=== PATIENT | female | born 1985 | race Caucasian/White ===

== ENCOUNTER 2017-07-08 23:15 | Emergency (ER) | payer MEDICAID ==
[~2017-07-08] VITALS: Ht 175.3 cm; Wt 55.0 kg
[~2017-07-08 23:15] MED LIST: ANTI10DR6 EACH EAR; CIPR7.5D2 EACH EAR; CLIN-26 PO; GUAI600T45 PO; NEOM10DR22 OT; NEOM10DR45 EACH EAR; PREN-139 PO; TRAM50TA2 PO
[2017-07-09 00:32] VITALS: BP 118/73
[2017-07-09] MEDS ORDERED: NEOM10SO7 OT (01:25)
== END 2017-07-09 01:37 | disposition home or self-care (01) ==
LOC: ER 23:16
DX: H92.13 Otorrhea, bilateral (principal); F12.10 Cannabis abuse, uncomplicated; Z79.899 Other long term (current) drug therapy; Z88.0 Allergy status to penicillin
CPT/HCPCS: 99283

== ENCOUNTER 2017-12-26 00:08 | Emergency (ER) | payer MEDICAID ==
[~2017-12-26] VITALS: Ht 175.3 cm; Wt 62.0 kg
[~2017-12-26 00:08] MED LIST changes: +NEOM10SO7 OT
[2017-12-26] MEDS ORDERED: HYDROcodone/acetaminophen 10/325mg tab PO ONE (00:40)
[2017-12-26] MEDS ORDERED: clindamycin 150mg capsule PO ONE (00:40)
[2017-12-26] MEDS ORDERED: HYDR-4383 PO (00:42)
[2017-12-26] MEDS ORDERED: CLIN300C54 PO (00:42)
[2017-12-26] MEDS ORDERED: IBUP-1986 PO (00:42)
[2017-12-26 01:08] VITALS: BP 117/75
== END 2017-12-26 01:13 | disposition home or self-care (01) ==
LOC: ER 00:09
DX: K04.7 Periapical abscess without sinus (principal); K02.9 Dental caries, unspecified; K08.3 Retained dental root; F12.90 Cannabis use, unspecified, uncomplicated; F17.200 Nicotine dependence, unspecified, uncomplicated; Z88.0 Allergy status to penicillin; Z88.1 Allergy status to other antibiotic agents; Z98.890 Other specified postprocedural states
CPT/HCPCS: 99283

== ENCOUNTER 2018-02-02 03:10 | Emergency (ER) | payer MEDICAID ==
[~2018-02-02] VITALS: Ht 175.3 cm; Wt 68.1 kg
[~2018-02-02 03:10] MED LIST changes: +HYDR-4383 PO; +IBUP-1986 PO
[2018-02-02] MEDS ORDERED: TRAM50TA2 PO (03:28)
[2018-02-02] MEDS ORDERED: CLIN300C3 PO (03:28)
[2018-02-02] MEDS ORDERED: traMADol 50MG tablet PO ONE (03:30)
[2018-02-02 03:36] VITALS: BP 124/83
== END 2018-02-02 03:38 | disposition home or self-care (01) ==
LOC: ER 03:10
DX: K02.9 Dental caries, unspecified (principal); F12.90 Cannabis use, unspecified, uncomplicated; Z98.890 Other specified postprocedural states; Z88.0 Allergy status to penicillin; Z88.1 Allergy status to other antibiotic agents; Z79.899 Other long term (current) drug therapy
CPT/HCPCS: 99283

== ENCOUNTER 2018-09-04 02:54 | Emergency (ER) | payer MEDICAID ==
[~2018-09-04] VITALS: Ht 175.3 cm; Wt 68.0 kg
[~2018-09-04 02:54] MED LIST changes: -PREN-139 PO; +PRENATAL ONE T1 EACH PO
[2018-09-04 02:58] VITALS: BP 120/82
== END 2018-09-04 03:36 | disposition left against medical advice (07) ==
LOC: ER 02:55
DX: H92.01 Otalgia, right ear (principal); Z53.21 Procedure and treatment not carried out due to patient leaving prior to being seen by health care provider

== ENCOUNTER 2018-12-04 20:40 | Emergency (ER) | payer MEDICAID ==
[~2018-12-04] VITALS: Ht 175.3 cm; Wt 66.3 kg
[2018-12-04] MEDS ORDERED: CLIN150C8 PO (22:55)
--- NOTE | 2018-12-04 23:00 | NUR ---
PATIENT C/O OF RIGHT EAR PAIN AND RIGHT HEAD PAIN. SOME REDNESS IN EAR . CHRONIC EAR ISSUE
[2018-12-05 01:15] VITALS: BP 109/62
== END 2018-12-04 23:40 | disposition home or self-care (01) ==
LOC: ER 20:42
DX: H66.91 Otitis media, unspecified, right ear (principal); H92.11 Otorrhea, right ear; F12.90 Cannabis use, unspecified, uncomplicated; Z98.890 Other specified postprocedural states; Z88.0 Allergy status to penicillin; Z79.2 Long term (current) use of antibiotics; Z79.899 Other long term (current) drug therapy
CPT/HCPCS: 99283

== ENCOUNTER 2019-01-29 15:50 | Emergency (ER) | payer MEDICAID ==
[~2019-01-29] VITALS: Ht 175.3 cm; Wt 68.0 kg
[~2019-01-29 15:50] MED LIST changes: +CLIN150C8 PO
[2019-01-29 16:02] VITALS: BP 114/55
[2019-01-29] MEDS ORDERED: DOXY100C43 PO (16:38)
== END 2019-01-29 17:15 | disposition home or self-care (01) ==
LOC: ER 15:51
DX: L02.416 Cutaneous abscess of left lower limb (principal); F12.90 Cannabis use, unspecified, uncomplicated; Z88.0 Allergy status to penicillin; Z88.1 Allergy status to other antibiotic agents; Z79.899 Other long term (current) drug therapy; Z98.890 Other specified postprocedural states
CPT/HCPCS: 99283

== ENCOUNTER 2019-03-10 17:23 | Emergency (ER) | payer MEDICAID ==
[~2019-03-10] VITALS: Ht 175.3 cm; Wt 80.0 kg
[2019-03-10 17:31] VITALS: BP 128/89
== END 2019-03-10 18:20 | disposition home or self-care (01) ==
LOC: ER 17:25
DX: R05 Cough (principal); R11.2 Nausea with vomiting, unspecified; R51 Headache; J02.9 Acute pharyngitis, unspecified; F10.99 Alcohol use, unspecified with unspecified alcohol-induced disorder; F12.90 Cannabis use, unspecified, uncomplicated; Z86.2 Personal history of diseases of the blood and blood-forming organs and certain disorders involving the immune mechanism; Z98.890 Other specified postprocedural states; Z88.0 Allergy status to penicillin; Z88.1 Allergy status to other antibiotic agents; Z79.899 Other long term (current) drug therapy; Y90.9 Presence of alcohol in blood, level not specified
CPT/HCPCS: 99281

== ENCOUNTER 2019-06-16 05:22 | Emergency (ER) | payer MEDICAID ==
[~2019-06-16] VITALS: Ht 175.3 cm; Wt 65.6 kg
[2019-06-16 05:29] VITALS: BP 107/66
== END 2019-06-16 05:53 | disposition left against medical advice (07) ==
LOC: ER 05:22
DX: H92.01 Otalgia, right ear (principal); Z53.21 Procedure and treatment not carried out due to patient leaving prior to being seen by health care provider

== ENCOUNTER 2020-06-29 23:28 | Emergency (ER) | payer MEDICAID ==
[~2020-06-29] VITALS: Ht 175.3 cm; Wt 68.4 kg
[2020-06-29 23:35] VITALS: BP 106/67
[2020-06-30] MEDS ORDERED: acetaminophen 325mg tablet PO ONE (00:10)
== END 2020-06-30 00:46 | disposition home or self-care (01) ==
LOC: ER 23:28
DX: R07.89 Other chest pain (principal); F12.90 Cannabis use, unspecified, uncomplicated; Z86.2 Personal history of diseases of the blood and blood-forming organs and certain disorders involving the immune mechanism; Z98.890 Other specified postprocedural states; Z72.89 Other problems related to lifestyle; Z88.0 Allergy status to penicillin; Z79.899 Other long term (current) drug therapy
CPT/HCPCS: 93005; 99283

== ENCOUNTER 2020-11-08 18:33 | Emergency (ER) | payer MEDICAID ==
[~2020-11-08] VITALS: Ht 175.3 cm; Wt 63.6 kg
[2020-11-08 20:37] VITALS: BP 101/68
[2020-11-08] MEDS ORDERED: LIDOcaine 1% 30ml preserv. free vial IJ ONE (22:05)
[2020-11-08] MEDS ORDERED: HYDR-3965 PO (22:57)
== END 2020-11-08 23:36 | disposition home or self-care (01) ==
LOC: ER 18:34
DX: S62.614A Displaced fracture of proximal phalanx of right ring finger, initial encounter for closed fracture (principal); F12.90 Cannabis use, unspecified, uncomplicated; Z86.2 Personal history of diseases of the blood and blood-forming organs and certain disorders involving the immune mechanism; Z98.890 Other specified postprocedural states; Z72.89 Other problems related to lifestyle; Z88.0 Allergy status to penicillin; Z79.2 Long term (current) use of antibiotics; Z79.899 Other long term (current) drug therapy; X58.XXXA Exposure to other specified factors, initial encounter; Y93.89 Activity, other specified; Y92.89 Other specified places as the place of occurrence of the external cause; Y99.8 Other external cause status
CPT/HCPCS: 26725; 26755; 73120; 73140; 99284

== ENCOUNTER 2022-05-24 16:39 | Emergency (ER) | payer MEDICAID ==
[~2022-05-24] VITALS: Ht 172.7 cm; Wt 68.2 kg
[2022-05-24 17:25] VITALS: BP 106/62
[2022-05-24] MEDS ORDERED: TETanus/Pertussis (Acell)/Diphther VAC/PF (Tdap-Adult) 0.5ml syringe IMVAC ONE (21:05)
[2022-05-24] MEDS ORDERED: HYDROcodone/acetaminophen 10/325mg tab PO ONE (21:05)
[2022-05-24] MEDS ORDERED: LIDOcaine 1% 30ml preserv. free vial IJ ONE (21:05)
[2022-05-24] MEDS ORDERED: ketorolac trometh inj. 60 MG/2 ML VIAL IM ONE (21:05)
[2022-05-24] MEDS ORDERED: HYDR-3965 PO (21:39)
[2022-05-24] MEDS ORDERED: IBUP-1986 PO (21:39)
== END 2022-05-24 22:14 | disposition home or self-care (01) ==
LOC: ER 16:40
DX: S62.346A Nondisplaced fracture of base of fifth metacarpal bone, right hand, initial encounter for closed fracture (principal); S80.12XA Contusion of left lower leg, initial encounter; S90.02XA Contusion of left ankle, initial encounter; S50.812A Abrasion of left forearm, initial encounter; S60.221A Contusion of right hand, initial encounter; F12.90 Cannabis use, unspecified, uncomplicated; Z72.89 Other problems related to lifestyle; Z79.2 Long term (current) use of antibiotics; Z98.891 History of uterine scar from previous surgery; Z79.899 Other long term (current) drug therapy; Z23 Encounter for immunization; Z88.0 Allergy status to penicillin; Z88.1 Allergy status to other antibiotic agents; V29.99XA Rider (driver) (passenger) of other motorcycle injured in unspecified traffic accident, initial encounter; Y93.89 Activity, other specified; Y92.89 Other specified places as the place of occurrence of the external cause; Y99.8 Other external cause status
CPT/HCPCS: 26605; 29540; 73130; 73140; 73564; 73590; 73610; 90471; 90715; 96372; 99284; A6222; J1885; L1930; 28470; 29260; 90461; A6449

== ENCOUNTER 2022-05-29 17:05 | Emergency (ER) | payer MEDICAID ==
[~2022-05-29] VITALS: Ht 172.7 cm; Wt 67.0 kg
[~2022-05-29 17:05] MED LIST changes: +HYDR-3965 PO
[2022-05-29 17:07] VITALS: BP 110/59
[2022-05-29] MEDS ORDERED: neomy sulf/polymyx B sulf/HC 10ml otic suspension EACH EAR ONE (17:40)
== END 2022-05-29 18:15 | disposition home or self-care (01) ==
LOC: ER 17:06
DX: H60.592 Other noninfective acute otitis externa, left ear (principal); F12.10 Cannabis abuse, uncomplicated; Z86.2 Personal history of diseases of the blood and blood-forming organs and certain disorders involving the immune mechanism; Z88.0 Allergy status to penicillin; Z88.1 Allergy status to other antibiotic agents; Z79.899 Other long term (current) drug therapy; Z79.1 Long term (current) use of non-steroidal anti-inflammatories (NSAID); Z79.2 Long term (current) use of antibiotics
CPT/HCPCS: 99284

== ENCOUNTER 2023-08-08 22:04 | Emergency (ER) | payer MEDICAID ==
[~2023-08-08] VITALS: Ht 175.3 cm; Wt 63.6 kg
[~2023-08-08 22:04] MED LIST changes: +CLIN-214 PO; -CLIN150C8 PO; -HYDR-3965 PO
[2023-08-08 22:09] VITALS: BP 114/49; PULSE 104; RESP 16; TEMP 99.1; O2SAT 98
== END 2023-08-08 23:32 | disposition left against medical advice (07) ==
LOC: ER 22:07
DX: O26.899 Other specified pregnancy related conditions, unspecified trimester (principal); N93.9 Abnormal uterine and vaginal bleeding, unspecified; Z88.1 Allergy status to other antibiotic agents; Z88.0 Allergy status to penicillin

== ENCOUNTER 2023-09-20 20:29 | Emergency (ER) | payer MEDICAID ==
[~2023-09-20] VITALS: Ht 175.3 cm; Wt 64.1 kg
[2023-09-20 20:36] VITALS: BP 115/59; RESP 14; TEMP 98.4; O2SAT 100
[2023-09-20 21:27] LABS: BASOPHILS % (AUTO) 0.4 % (0-1); EOSINOPHILS # (AUTO) 0.1 X10'3 (0-0.9); EOSINOPHILS % (AUTO) 0.8 % (0-6); HEMATOCRIT 35.2 % (35.0-45.0); HEMOGLOBIN 11.9 g/dl (12.0-16.0); LYMPHOCYTES # (AUTO) 1.7 X10'3 (1.1-4.8); LYMPHOCYTES % (AUTO) 13.6 % (21-51); MEAN CORPUSCULAR HEMOGLOBIN 30.9 PG (27.0-31.0); MEAN CORPUSCULAR HGB CONC 33.7 g/dL (33.0-36.5); MEAN CORPUSCULAR VOLUME 91.7 FL (78-98); MONOCYTES # (AUTO) 0.7 X10'3 (0-0.9); MONOCYTES % (AUTO) 5.8 % (2-12); NEUTROPHILS # (AUTO) 9.9 X10'3 (1.8-7.7); NEUTROPHILS % (AUTO) 79.4 % (42-75); PLATELET COUNT 254 X10'3 (140-440); RED BLOOD COUNT 3.84 X10'6 (4.20-5.60); RED CELL DISTRIBUTION WIDTH 13.5 % (11.5-14.5); WHITE BLOOD COUNT 12.5 X10'3 (4.5-11.0)
[2023-09-20 21:36] LABS: HCG SERUM QL POSITIVE
[2023-09-20 21:39] LABS: APTT 27 SECONDS (22-32); INR 0.9 INR; PROTHROMBIN TIME 10.2 SECONDS (9.0-12.0)
[2023-09-20 21:40] LABS: ALANINE AMINOTRANSFERASE 23 U/L (12-78); ALBUMIN 2.9 G/DL (3.4-5.0); ALBUMIN/GLOBULIN RATIO 0.8 (1.1-1.5); ALKALINE PHOSPHATASE 92 IU/L (46-116); ANION GAP 8 (8-16); ASPARTATE AMINO TRANSFERASE 17 U/L (10-37); BILIRUBIN,TOTAL 0.4 MG/DL (0.1-1.0); BLOOD UREA NITROGEN 8 MG/DL (7-18); BUN/CREATININE RATIO 15.1 (10.0-20.0); CALCIUM 8.7 MG/DL (8.5-10.1); CHLORIDE 103 MMOL/L (99-107); CREATININE 0.53 MG/DL (0.40-0.90); GLUCOSE 100 MG/DL (70-104); POTASSIUM 3.3 MMOL/L (3.5-5.1); SODIUM 137 MMOL/L (135-145); TOTAL CARBON DIOXIDE 26.4 MMOL/L (24-32); TOTAL PROTEIN 6.7 G/DL (6.4-8.2); eCRCL 147 ML/MIN; eGFR > 90 ML/MIN
[2023-09-20 22:04] LABS: BETA HCG,QUANTITATIVE 23355 mIU/ml
[2023-09-20] MEDS: acetaminophen 325mg tablet PO ONE (22:42)
== END 2023-09-20 23:18 | disposition home or self-care (01) ==
LOC: ER 20:29
DX: O03.4 Incomplete spontaneous abortion without complication (principal); F12.90 Cannabis use, unspecified, uncomplicated; Z88.0 Allergy status to penicillin; Z88.1 Allergy status to other antibiotic agents; Z79.899 Other long term (current) drug therapy; Z79.2 Long term (current) use of antibiotics; Z98.890 Other specified postprocedural states
CPT/HCPCS: 36415; 76801; 80053; 84702; 84703; 85025; 85610; 85730; 86900; 86901; 99284

== ENCOUNTER 2023-09-25 14:35 | Emergency (ER) | payer MEDICAID ==
[~2023-09-25] VITALS: Ht 175.3 cm; Wt 65.0 kg
[2023-09-25 14:41] VITALS: TEMP 98.6
[2023-09-25 15:28] VITALS: BP 113/68; PULSE 92; RESP 14; O2SAT 97
== END 2023-09-25 16:36 | disposition home or self-care (01) ==
LOC: ER 14:36
DX: O03.4 Incomplete spontaneous abortion without complication (principal); F12.90 Cannabis use, unspecified, uncomplicated; Z88.0 Allergy status to penicillin; Z88.1 Allergy status to other antibiotic agents; Z79.899 Other long term (current) drug therapy; Z79.1 Long term (current) use of non-steroidal anti-inflammatories (NSAID); Z79.2 Long term (current) use of antibiotics; Z98.890 Other specified postprocedural states
CPT/HCPCS: 99281

== ENCOUNTER 2024-09-09 21:15 | Emergency (ER) | payer MEDICAID ==
[~2024-09-09] VITALS: Ht 175.3 cm; Wt 65.2 kg
[2024-09-09 21:24] VITALS: BP 120/76; PULSE 98; RESP 18; TEMP 99.1; O2SAT 99
--- NOTE | 2024-09-09 21:37 | Physician Documentation ---
History of Present Illness ~ Chief Complaint: Laceration Stated Complaint: ARM LAC Time Seen by MD: 21:35 OK to notify your PCP?: Yes Primary Medical Doctor: [facility] Source: patient HPI 38-year-old female presents for laceration to right elbow that happened around 9:00 a.m. this morning. She placed butterfly bandages on it at the time and irrigated wound well prior to putting a dressing. She took an nap this evening and then noticed little bit of drainage on the gauze and just wanted to be evaluated. Use last tetanus vaccine was last year. Tetanus Within 5 Years: Yes Medication Reconciliation Allergies: Coded Allergies: Penicillins (Verified Allergy, Unknown, unk, pt told of this allergy when she was younger, 08/08/23) amoxicillin (Verified Allergy, Unknown, 08/08/23) Scheduled Antipyrine/Benzocaine (Antipyrine-Benzocaine Ear Drop), 2-4 DROP EACH EAR Q2H PRN Ciprofloxacin HCl/Dexameth (Ciprodex Otic Suspension), 4 DROP EACH EAR BID Clindamycin HCl (Clindamycin HCl), 450 CAP PO TID Clindamycin HCl (Clindamycin HCl CAPSULE), 1 CAP PO QID Guaifenesin (Mucinex), 1 TAB PO Q12H Ibuprofen (Ibuprofen), 1 TAB PO Q8H Ibuprofen (Ibuprofen), 1 TAB PO Q8H Neomy Sulf/Polymyx B Sulf/Hc (Cortisporin Ear Suspension), 2 DROP OT 5XD Neomy Sulf/Polymyx B Sulf/Hc (Cortisporin Otic Solution), 2 DROP OT TID Neomycin/Polymyxin B Sulf/Hc (Qfrzjmue-Eyhztazhl-Vy Ear Susp), 4 DROP EACH EAR TID Vit #108/Iron/Fa ( One Tablet), 1 EACH PO DAILY, (Reported) Tramadol Hcl (Tramadol Hcl), 50-100 MG PO Q6H PRN FOR PAIN Scheduled PRN Hydrocodone/Acetaminophen (Kendrick 5-325 Tablet), 1-2 TAB PO Q4HPRN PRN for pain Past Medical History Past Medical History: Anemia, Renal Disease Past Surgical History: Alcohol Use: Occasionally Drug Use: marijuana Lives In: Home Review of Systems All Other Systems at this time: Reviewed and Negative Physical Exam Vital Signs: RN Vital Signs have been reviewed: Yes, Temperature: 99.1, Source: Temporal, Heart Rate: 98, Respiratory Rate: 18, BP: 120/76, Pulse Oximetry: 99, Weight: 65.150 Oxygen Flow Rate: 0 Pulse Oximetry Reflects: adequate oxygenation Physical Exam General: Alert, no distress. HEENT: No injection, moist mucous membranes. Neck: Full range of motion. Respiratory: No respiratory distress, equal chest rise and fall. Chest: No accessory muscle use. Cardiovascular: Regular rate and rhythm. Gastrointestinal: Nondistended. Extremities: Normal range of motion, no deformity. Neurologic: Oriented x4. Psychiatric: Normal mood and affect. Skin: Normal color, warm and dry. Laceration covered by 3 butterfly bandages to right elbow no signs or symptoms of infection. Normal range motion of right elbow, good CSM, good sensation. Progress Results/Orders Results/Orders Vital Signs 09/09/24 21:24 Temp 99.1 Pulse 98 Resp 18 B/P (MAP) 120/76 Pulse Ox 99 O2 Flow Rate 0 Medical Decision Making Findings 38-year-old female with laceration to right elbow which she placed butterfly bandages on at home after irrigating well. Her last tetanus was 1 year ago so that is up-to-date. There are no signs of infection. There was a small amount of serous sanguinous drainage on her dressing. We discussed that she did a very good job on dressing with the butterfly bandages and all of the edges looked well aligned. There was no signs or symptoms of infection. We discussed that if signs or symptoms of infection what they are and if they should occurred that she may need to be seen for some antibiotics. We discussed that she should keep the wound covered for the next couple of days and avoid any water sources other than a clean shower. She should follow up with her primary care provider in the next week and return back here for any new or worsening symptoms. We change her dressing and she agreed with the discharge plan. Differential Dx:Considerations: Include: Contusion, Fracture, Hematoma, Neurovascular injury Departure Disposition: 01 HOME / SELF CARE / HOMELESS Impression: Primary Impression: Laceration Condition: Stable Discharge Instructions: Laceration Care, Adult, [id number] Additional Instructions: Monitor for signs of infection such as redness traveling up the arm, pus-like discharge, fevers or generally not feeling good please return as you may need an antibiotic. Keep the butterfly bandages on for the next 7 days. Follow up with her primary care provider in the next 3 days and return back here for any new or worsening symptoms. Please keep wound clean and dry. Referrals: NO PRIMARY CARE PROVIDER (PCP) Education Educated: Patient Educated regarding: diagnosis, treatment, prognosis, need for follow up Additional Comment Medical Screen Exam This patient recieved a medical screening examination. After reviewing the individual's medical complaints with presenting symptoms and performing an appropriate physical examination, it was determined that no immediate life- threatening emergency medical condition is present. This individual is also not a women having contractions. Signature Scribe Signature: . Attestation: Scribed for Rozina Graham Deicer Finisher by Rozina Schneider NP . 09/10/24 00:45 Parts of this note were created using [employer] [place] voice recognition software program. While efforts were made to correct any mistakes made by this voice recognition software program, nonsensical phrases may remain in this note. In addition, there may be errors and syntax, grammar, content and spelling. ROZINA [facility]IST Sep 09, 2024 21:37
== END 2024-09-09 21:43 | disposition home or self-care (01) ==
LOC: ER 21:15
DX: S51.011A Laceration without foreign body of right elbow, initial encounter (principal); F12.90 Cannabis use, unspecified, uncomplicated; Z88.0 Allergy status to penicillin; X58.XXXA Exposure to other specified factors, initial encounter; Y93.89 Activity, other specified; Y92.89 Other specified places as the place of occurrence of the external cause; Y99.8 Other external cause status
CPT/HCPCS: 99282